=== PATIENT | male | born 1985 | race Caucasian/White ===

== ENCOUNTER 2020-05-18 18:20 | Emergency (ER) | payer BC, OTHER ==
[~2020-05-18 18:20] MED LIST: BROMFED DM COU473 ML PO
[2020-05-18] MEDS ORDERED: ELIMITE 5% CREA60 GM TOP (19:37)
[2020-05-18] MEDS ORDERED: VISTARIL25 MG PO (19:37)
== END 2020-05-18 19:50 | disposition home or self-care (01) ==
LOC: ER1 18:20
DX: B86 Scabies (principal); L29.9 Pruritus, unspecified; F17.210 Nicotine dependence, cigarettes, uncomplicated
CPT/HCPCS: 99282

== ENCOUNTER 2020-07-15 03:08 | Emergency (ER) | payer BC, OTHER ==
[~2020-07-15 03:08] MED LIST changes: +ELIMITE 5% CREA60 GM TOP; +VISTARIL25 MG PO
[2020-07-15 04:14] LABS: HEMOGLOBIN 15.5 gm/dl (14.0-17.5); RED BLOOD COUNT 4.86 M/UL (4.20-5.50); WHITE BLOOD COUNT 13.2 K/UL (4.5-11.0)
[2020-07-15 04:36] LABS: BUN/CREATININE RATIO 21 (0-10)
[2020-07-15] MEDS ORDERED: ELIMITE60 GM TP (04:53)
== END 2020-07-15 04:57 | disposition home or self-care (01) ==
LOC: ER1 03:08
PROVIDERS: Emergency Medicine
DX: L29.9 Pruritus, unspecified (principal); F17.210 Nicotine dependence, cigarettes, uncomplicated
CPT/HCPCS: 80053; 80307; 81001; 85025; 99283

== ENCOUNTER 2020-08-27 23:01 | Emergency (ER) | payer BC, OTHER ==
[~2020-08-27 23:01] MED LIST changes: +ELIMITE60 GM TP
[2020-08-27 23:43] LABS: HEMOGLOBIN 14.9 gm/dl (14.0-17.5); RED BLOOD COUNT 4.71 M/UL (4.20-5.50); WHITE BLOOD COUNT 8.5 K/UL (4.5-11.0)
[2020-08-28 00:01] LABS: BUN/CREATININE RATIO 15 (0-10)
[2020-08-28] MEDS ORDERED: VISTARIL 50 MG50 MG PO (02:35)
== END 2020-08-28 02:39 | disposition home or self-care (01) ==
LOC: ER1 23:01
PROVIDERS: Emergency Medicine
DX: R21 Rash and other nonspecific skin eruption (principal)
CPT/HCPCS: 80053; 85025; 99283

== ENCOUNTER 2020-09-25 17:45 | Emergency (ER) | payer BC, OTHER ==
[~2020-09-25 17:45] MED LIST changes: +VISTARIL 50 MG50 MG PO
[2020-09-25 18:28] LABS: HEMOGLOBIN 15.7 gm/dl (14.0-17.5); RED BLOOD COUNT 4.97 M/UL (4.20-5.50); WHITE BLOOD COUNT 9.4 K/UL (4.5-11.0)
[2020-09-25 18:47] LABS: BUN/CREATININE RATIO 14 (0-10)
== END 2020-09-25 22:18 | disposition home or self-care (01) ==
LOC: ER1 17:45
PROVIDERS: Emergency Medicine
DX: R07.9 Chest pain, unspecified (principal); Z20.822 Contact with and (suspected) exposure to COVID-19; F17.200 Nicotine dependence, unspecified, uncomplicated
CPT/HCPCS: 71045; 80053; 82550; 82553; 83690; 83874; 84484; 85025; 85379; 93005; 99285; U0002

== ENCOUNTER → 2020-10-19 | Outpatient (CLI) | payer BC | LOC: HEART 5 10-16 08:15 | DX: R07.9 Chest pain, unspecified (principal) | CPT/HCPCS: 78452; A9502 ==